=== PATIENT | male | born 1940 | race Caucasian/White ===

== ENCOUNTER → 2017-01-07 | Day surgery (SDC) | payer BC, MEDICARE ==
[~2017-01-07] VITALS: Ht 185.4 cm; Wt 92.0 kg
[~2017-01-07] MED LIST: ASPI325T PO; BUPIVACAINE HCL PF 0.5% 30 ML VIAL ONE; CIPR250T52 PO; CIPROFLOXACIN 400 MG PREMIX 200 ML ONE; FAMOTIDINE 20 MG/2 ML VIAL ONE; FISHCAP4 PO; HYDR-3288 PO; LACTATED RINGER'S 1000 ML INJ 1,000 ML ONE; LIDOCAINE HCL 2% 50 ML VIAL ONE; LORA10TA PO; MIDAZOLAM HCL 2 MG/2 ML VIAL ONE; PROT40TA PO; RAMI5CAP PO; ROSU40 PO; TAMS5CAP PO; fentaNYL CITRATE 250 MCG/5 ML AMP ONE
[2017-01-07 06:47] VITALS: BP 144/73; PULSE 60; RESP 20; TEMP 97.4; O2SAT 100
[2017-01-07 07:10] LABS: HEMATOCRIT 35.8 % (39.0-51.0); MEAN CELL VOLUME 87.6 FL (80.0-100.0); MEAN CORPUSCULAR HEMOGLOBIN 29.1 PG (27.0-34.0); MEAN CORPUSCULAR HGB CONC 33.2 % (32.0-36.0); PLATELET COUNT 183 TH/MM3 (150-450); RED BLOOD COUNT 4.08 MIL/MM3 (4.50-5.90); RED CELL DISTRIBUTION WIDTH 14.9 % (11.6-17.2); REVIEW FLAG FINAL; WHITE BLOOD COUNT 5.1 TH/MM3 (4.0-11.0)
--- NOTE | 2017-01-08 15:48 | EKG ---
Date Performed: 01/07/2017 Time Performed: 07:15:10 PTAGE: 76 years EKG: Sinus bradycardia with 1st degree A-V block. Poor R wave progression - probable normal vari ant Abnormal ECG PREVIOUS TRACING : 01/07/2017 07.00 Compared to prior tracing no significant change DOCTOR: Gopal Del Cid Interpretating Date/Time 01/08/2017 15:46:18
== END | disposition home or self-care (01) ==
LOC: PHSDC 06:08
PROVIDERS: ATTEND Orthopaedic Surgery Hand Surgery
DX: G56.01 Carpal tunnel syndrome, right upper limb (principal); L90.5 Scar conditions and fibrosis of skin; I10 Essential (primary) hypertension; E78.5 Hyperlipidemia, unspecified; Z95.1 Presence of aortocoronary bypass graft; Z01.818 Encounter for other preprocedural examination; Z01.810 Encounter for preprocedural cardiovascular examination; Z53.09 Procedure and treatment not carried out because of other contraindication
CPT/HCPCS: 36415; 85027; 93005; 99211; J0744; J2250; J3010; J7120

== ENCOUNTER → 2017-01-21 | Day surgery (SDC) | payer BC, MEDICARE ==
[~2017-01-21] VITALS: Ht 185.4 cm; Wt 93.0 kg
[~2017-01-21] MED LIST changes: +MORPHINE SULFATE 4 MG/ML INJ ONE; +MUPIROCIN 2% OINT 22 GM TUBE ONE; +NEOMYCIN/POLYMYXIN 1 ML G.U. IRRIGANT TOPICAL ONE; +ONDANSETRON HCL 4 MG/2 ML VIAL IV PUSH ONE; +PHENYLEPH/NS 1000 MCG/10 ML SYR IV ONE; +PROPOFOL 200 MG/20 ML AMP IV ONE; +ePHEDrine/NS 25 MG/5 ML SYR IV ONE; -fentaNYL CITRATE 250 MCG/5 ML AMP ONE
[2017-01-21 06:28] VITALS: BP 143/78; PULSE 61; RESP 20; TEMP 97.5; O2SAT 97
[2017-01-21 09:29] VITALS: PULSE 82
--- NOTE | 2017-01-21 10:01 | MP ---
cc: ROB COREA III, M.D. DATE OF SURGERY: 01/21/2017 PREOPERATIVE DIAGNOSIS Recurrent right carpal tunnel syndrome. PROCEDURE Right open carpal tunnel release, redo with NeuraWrap placement around the median nerve. SURGEON Rob Corea III, MD PROCEDURE The patient was brought to the operating room and placed supine on the operating table. After the correct site and side of surgery were verified by members of each team in the room multiple times including the patient, myself and after adequate preoperative markings and preoperative written consent were verified by everyone, and after adequate IV sedation had been achieved the right upper extremity was prepped and draped in traditional sterile surgical fashion. A 50/50 mixture of 2% plain lidocaine and 0.5% plain Marcaine was infiltrated in the skin and subcutaneous tissue at the base following the carpal tunnel. The limb was exsanguinated with a gentle Gaudencio wrap, a highly placed well-padded axillary tourniquet was inflated to 200 mmHg for a total of 25 minutes. Longitudinally oriented incision with angles of the skin flexion crease at the wrist was made and carried down through skin and subcutaneous tissue. Blunt dissection was then performed the entire way. Proximally normal median nerve was identified and dissection was carried down distally into the palm. A large amount of scar tissue was identified and was found to be encased around the median nerve. The median nerve was dissected free from all the encapsulating adhesions from the distal forearm into the mid palm. It otherwise looked intact. There was a large amount of hypertrophic tenosynovium of the flexor tendons. This was excised to an extent as well. Thorough irrigation was performed. There were no other anatomic abnormalities identified. A 10 mm x 4 cm NeuraWrap conduit was then placed around the median nerve from the proximal palm and across the wrist, the site of the majority of the adhesions, and secured to itself and in place using interrupted 6-0 Prolene sutures. Did not have any excursion following this. Thorough irrigation was performed again, all the air bubbles were flushed out of the conduit using saline. The skin edges reapproximated using interrupted and running 4-0 Nylon sutures irrigating several times along the way for a total of 2 liters of irrigation throughout the case. The hand and arm were thoroughly cleansed and dried. Adaptic dressing with a little bit of bacitracin ointment was applied over the wounds. A bulky soft dressing was then applied and the circumferential dressing following that. After that the axillary tourniquet was released. The hand and all the fingers on the right became immediately soft, pink and warm and had brisk capillary refill of less than 2 seconds. A small volar immobilizing wrist splint was made in the usual fashion. The patient was awakened from anesthesia and transported to the Post Anesthesia Care Unit awake and in stable condition at the end of the case. Sponge, needle and instrument counts were correct at the end of the case as reported by nurses in the room. MD DONTA Lanza III/JOSE /9:43 AM /9:50 AM
[2017-01-21 10:10] VITALS: BP 127/79; PULSE 60; RESP 16; TEMP 98.6; O2SAT 99
== END | disposition home or self-care (01) ==
LOC: PHSDC 06:03
PROVIDERS: ATTEND Orthopaedic Surgery Hand Surgery
DX: G56.01 Carpal tunnel syndrome, right upper limb (principal)
CPT/HCPCS: 64721; C9352; J0744; J2250; J2270; J2370; J2405; J7120

== ENCOUNTER → 2017-02-16 | Outpatient (CLI) | payer BC, MEDICARE ==
[~2017-02-16] MED LIST changes: -BUPIVACAINE HCL PF 0.5% 30 ML VIAL ONE; -CIPR250T52 PO; -CIPROFLOXACIN 400 MG PREMIX 200 ML ONE; -FAMOTIDINE 20 MG/2 ML VIAL ONE; -HYDR-3288 PO; -LACTATED RINGER'S 1000 ML INJ 1,000 ML ONE; -LIDOCAINE HCL 2% 50 ML VIAL ONE; -MIDAZOLAM HCL 2 MG/2 ML VIAL ONE; -MORPHINE SULFATE 4 MG/ML INJ ONE; -MUPIROCIN 2% OINT 22 GM TUBE ONE; -NEOMYCIN/POLYMYXIN 1 ML G.U. IRRIGANT TOPICAL ONE; -ONDANSETRON HCL 4 MG/2 ML VIAL IV PUSH ONE; -PHENYLEPH/NS 1000 MCG/10 ML SYR IV ONE; -PROPOFOL 200 MG/20 ML AMP IV ONE; -ePHEDrine/NS 25 MG/5 ML SYR IV ONE
[2017-02-16 07:52] LABS: ANION GAP 4 MEQ/L (5-15); AST (GOT) 19 U/L (15-37); BICARBONATE 29.7 MEQ/L (21.0-32.0); BLOOD UREA NITROGEN 20 MG/DL (7-18); CHLORIDE 106 MEQ/L (98-107); GLOMERULAR FILTRATION RATE 71 ML/MIN (>89); GLUCOSE,FASTING 119 MG/DL (74-99); POTASSIUM 4.2 MEQ/L (3.5-5.1); SODIUM (NA) 140 MEQ/L (136-145)
[2017-02-16 07:55] LABS: ALKALINE PHOSPHATASE 64 U/L (45-117); ALT (GPT) 33 U/L (12-78); HDL CHOLESTEROL 60.4 MG/DL (40.0-60.0); LDL CHOLESTEROL 53 MG/DL (0-99); TOTAL BILIRUBIN ADULT 0.3 MG/DL (0.2-1.0)
[2017-02-16 16:51] LABS: HEMOGLOBIN A1a 0.8 %; HEMOGLOBIN A1b 1.9 %; HEMOGLOBIN Ao 84.8 %; HEMOGLOBIN LA1C 2.1 %; HEMOGLOBIN P3 4.2 %
== END ==
LOC: CLAB 06:44
PROVIDERS: ATTEND Family Medicine
DX: I10 Essential (primary) hypertension (principal); R73.9 Hyperglycemia, unspecified; N20.0 Calculus of kidney; E78.5 Hyperlipidemia, unspecified
CPT/HCPCS: 36415; 80053; 80061; 83036